=== PATIENT | female | born 1945 | race Caucasian/White ===

== ENCOUNTER → 2016-12-23 | Outpatient (CLI) | payer BC ==
[~2016-12-23] MED LIST: ALPOPS1510 OPB; CONJ0.3T3 PO; DORZ1SOL5 OPB; ONDA4TAB7 SL; TRAV0.00 OPB; [UNRECOGNIZED DRUG - OTHER] PO
== END | disposition home or self-care (01) ==
LOC: C.PAPS 10:37
PROVIDERS: ATTEND Obstetrics & Gynecology
DX: Z12.4 Encounter for screening for malignant neoplasm of cervix (principal)

== ENCOUNTER → 2016-12-23 | Outpatient (CLI) | payer BC ==
[2016-12-24 13:54] LABS: HERPES SIMPLEX AB IGG-1 >5.00
== END | disposition home or self-care (01) ==
LOC: C.LAB1850 11:31
PROVIDERS: ATTEND Obstetrics & Gynecology
DX: Z12.4 Encounter for screening for malignant neoplasm of cervix (principal); Z11.3 Encounter for screening for infections with a predominantly sexual mode of transmission

== ENCOUNTER 2017-03-22 21:13 | Emergency (ER) | payer BC ==
[~2017-03-22] VITALS: Ht 170.2 cm; Wt 64.3 kg
[~2017-03-22 21:13] MED LIST changes: -CONJ0.3T3 PO; -DORZ1SOL5 OPB
[2017-03-22 21:26] VITALS: TEMP 36.5; Ht 170.2 cm; Wt 64.3 kg
[2017-03-22 21:50] VITALS: O2SAT 100
[2017-03-22 21:59] LABS: HEMATOCRIT 35.5 % (37-47); MEAN CELL VOLUME 88.3 fL (80-100); MEAN CORPUSCULAR HEMOGLOBIN 29.4 pg (25-34); MEAN CORPUSCULAR HGB CONC 33.2 g/dl (32-36); MEAN PLATELET VOLUME 9.7 fL (7.4-10.4); PLATELET COUNT 220 K/uL (130-400); RED BLOOD COUNT 4.02 M/uL (4.2-5.4)
[2017-03-22 22:13] LABS: PROTHROMBIN TIME (PATIENT) 10.7 SECONDS (9.0-12.0)
[2017-03-22 22:16] LABS: BASO % 0.4 %; BASO ABS # 0.03 K/uL (0-0.2); COMPLETE YES; EOS % 1.9 %; LYMPH % 17.8 %; LYMPH ABS # 1.41 K/uL (1.2-3.4); MONO % 3.3 %; NEUT % 76.6 %; TOXIC GRANULATION 1+
[2017-03-22] MEDS ORDERED: CONJ0.3T3 PO (22:16)
[2017-03-22] MEDS ORDERED: DORZ1SOL5 OPB (22:16)
[2017-03-22 22:18] LABS: CALCIUM 9.2 mg/dl (8.5-10.1)
[2017-03-22 22:19] LABS: ALT/SGPT 23 U/L (12-78); BLOOD UREA NITROGEN 14 mg/dl (7-18); BUN/CREATININE RATIO 25.1 (10-20); CARBON DIOXIDE 22 mmol/L (21-32); CHLORIDE 107 mmol/L (98-107); CREATININE 0.57 mg/dl (0.60-1.20); GLUCOSE 112 mg/dl (70-99); POTASSIUM 3.4 mmol/L (3.5-5.1); SODIUM 141 mmol/L (136-145)
--- NOTE | 2017-03-22 22:21 | DIAGNOSTIC IMAGING REPORT ---
SINGLE VIEW CHEST CLINICAL HISTORY: Fever. Sepsis. FINDINGS: An AP, portable, upright chest radiograph is compared to study dated 10/15/2014. The examination is degraded by portable technique and patient rotation. The cardiomediastinal silhouette is unremarkable. Findings suggest emphysema. Chronic interstitial thickening is unchanged and there is biapical scarring. No airspace consolidation or pleural effusion is identified. No pneumothorax is seen. The skeletal structures are osteopenic. Gender change and mild scoliosis are noted throughout the thoracic spine. IMPRESSION: Suspect emphysema. There is no acute cardiopulmonary abnormality. Electronically signed by: Lisandro Cutler M.D. 03/22/2017 10:19 PM Dictated Date/Time: 03/22/2017 10:18 PM
[2017-03-22 22:24] LABS: ALKALINE PHOSPHATASE 70 U/L (45-117); AST/SGOT 26 U/L (15-37); CKMB/CK RATIO 1.9 (0-3.0)
--- NOTE | 2017-03-22 23:42 | EMERGENCY ROOM VISIT NOTE ---
History Report prepared by Scribe: Tonya Miranda Under the Supervision of: Dr. Nguyễn Castellanos D.O. First contact with patient: 21:37 Chief Complaint: NAUSEA Stated Complaint: DIZZY Nursing Triage Summary: arrived via amb with bls from the walk in clinic. pt had a normal day and tonight after standing for a prolonged time talking with a realator she felt nauseated and dizzy so she drove herself to the walk in clinic and they sent her for n/v. pt denies any c/o alert and oriented at present. History of Present Illness The patient is a 71 year old female who presents to the Emergency Room with complaints of worsening nausea that started earlier this evening. She was brought to the ED via BLS. She reports she started to feel dizzy after standing for a prolonged period of time talking to a realtor this evening. She tried laying down, but her dizziness persisted so she drove herself to a walk-in clinic. She states at the clinic, they referred her to the ED for further evaluation. The patient admits to a lot of stress recently with trying to sell her house. She complains of some "slight cramping" in her abdomen. 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 A total of 10 systems reviewed and were otherwise negative. Past Medical & Surgical Medical Problems: (1) Gastroparesis (2) No Known Active Medical Problems (3) Pneumonia Surgical Problems: (1) History of appendectomy (2) Hx of tonsillectomy Family History Cancer Diabetes mellitus Gallbladder disease Heart disease Hypertension Kidney disease Kidney stones Lung disease Seizures Social History Smoking Status: Never Smoker Alcohol Use: occasionally Drug Use: none Marital Status: Housing Status: lives alone Occupation Status: retired Current/Historical Medications Scheduled Dorzolamide Hcl-Timolol Maleat (Cosopt Pf), 1 DROP OPB BID Estrog Conj/Medryoxyprog Acet (Prempro 0.3MG/1.5MG), 1 TAB PO Q2D Travoprost (Travatan Z), 1 DROP OPB QD Allergies Coded Allergies: Cephalosporins (Unverified Allergy, Unknown, UNKN, 03/22/17) Erythromycin (Unverified Allergy, Unknown, UNKN, 03/22/17) Penicillins (Unverified Allergy, Unknown, UNKN, 03/22/17) Sulfa Drugs (Unverified Allergy, Unknown, UNKN, 03/22/17) Physical Exam Vital Signs Date Time Temp Pulse Resp B/P Pulse Ox O2 Delivery O2 Flow Rate FiO2 03/22/17 22:21 66 18 112/73 96 Room Air 03/22/17 21:50 100 Room Air 03/22/17 21:32 100 Room Air 03/22/17 21:26 36.5 64 18 115/66 100 Room Air 03/22/17 21:22 71 Physical Exam CONSTITUTIONAL/VITAL SIGNS: Reviewed / noted above. GENERAL: Non-toxic in appearance. INTEGUMENTARY: Warm, dry, and [place]. HEAD: Normocephalic. EYES: without scleral icterus or trauma. ENT/OROPHARYNX: clear and moist. LYMPHADENOPATHY/NECK: Is supple without lymphadenopathy or meningismus. RESPIRATORY: Lungs clear and equal. CARDIOVASCULAR: Regular rate and rhythm. GI/ABDOMEN: Soft and nontender. No organomegaly or pulsatile mass. No rebound or guarding. Normal bowel sounds. EXTREMITIES: Warm and well perfused. BACK: No CVA tenderness. NEUROLOGICAL: Intact without focal deficits. PSYCHIATRIC: normal affect. MUSCULOSKELETAL: Normally developed with good muscle tone. Medical Decision & Procedures ER Provider Diagnostic Interpretation: This X-Ray was reviewed and interpreted by myself and the radiologist. SINGLE VIEW CHEST IMPRESSION: Suspect emphysema. There is no acute cardiopulmonary abnormality. Electronically signed by: Lisandro Cutler M.D. 03/22/2017 10:19 PM Laboratory Results 03/22/17 21:40 Red Blood Count 4.02, Mean Corpuscular Volume 88.3, Mean Corpuscular Hemoglobin 29.4, Mean Corpuscular Hemoglobin Concent 33.2, Mean Platelet Volume 9.7, Neutrophils (%) (Auto) 76.6, Lymphocytes (%) (Auto) 17.8, Monocytes (%) (Auto) 3.3, Eosinophils (%) (Auto) 1.9, Basophils (%) (Auto) 0.4, Neutrophils # (Auto) 6.05, Lymphocytes # (Auto) 1.41, Monocytes # (Auto) 0.26, Eosinophils # (Auto) 0.15, Basophils # (Auto) 0.03 03/22/17 21:40 Test 03/22/17 21:40 White Blood Count 7.90 K/uL (4.8-10.8) Red Blood Count 4.02 M/uL (4.2-5.4) Hemoglobin 11.8 g/dL (12.0-16.0) Hematocrit 35.5 % (37-47) Mean Corpuscular Volume 88.3 fL (80-100) Mean Corpuscular Hemoglobin 29.4 pg (25-34) Mean Corpuscular Hemoglobin Concent 33.2 g/dl (32-36) Platelet Count 220 K/uL (130-400) Mean Platelet Volume 9.7 fL (7.4-10.4) Neutrophils (%) (Auto) 76.6 % Lymphocytes (%) (Auto) 17.8 % Monocytes (%) (Auto) 3.3 % Eosinophils (%) (Auto) 1.9 % Basophils (%) (Auto) 0.4 % Neutrophils # (Auto) 6.05 K/uL (1.4-6.5) Lymphocytes # (Auto) 1.41 K/uL (1.2-3.4) Monocytes # (Auto) 0.26 K/uL (0.11-0.59) Eosinophils # (Auto) 0.15 K/uL (0-0.5) Basophils # (Auto) 0.03 K/uL (0-0.2) RDW Standard Deviation 43.8 fL (36.4-46.3) RDW Coefficient of Variation 13.5 % (11.5-14.5) Immature Granulocyte % (Auto) 0.0 % Immature Granulocyte # (Auto) 0.00 K/uL (0.00-0.02) Toxic Granulation 1+ Prothrombin Time 10.7 SECONDS (9.0-12.0) Prothromb Time International Ratio 1.0 (0.9-1.1) Activated Partial Thromboplast Time 25.2 SECONDS (21.0-31.0) Partial Thromboplastin Ratio 1.0 Anion Gap 12.0 mmol/L (3-11) Est Creatinine Clear Calc Drug Dose 90.6 ml/min Estimated GFR () 109.6 Estimated GFR (Non- 94.6 BUN/Creatinine Ratio 25.1 (10-20) Calcium Level 9.2 mg/dl (8.5-10.1) Total Bilirubin 0.4 mg/dl (0.2-1) Direct Bilirubin < 0.1 mg/dl (0-0.2) Aspartate Amino Transf (AST/SGOT) 26 U/L (15-37) Alanine Aminotransferase (ALT/SGPT) 23 U/L (12-78) Alkaline Phosphatase 70 U/L (45-117) Total Creatine Kinase 218 U/L (26-192) Creatine Kinase MB 4.1 ng/ml (0.5-3.6) Creatine Kinase MB Ratio 1.9 (0-3.0) Troponin I < 0.015 ng/ml (0-0.045) Total Protein 7.5 gm/dl (6.4-8.2) Albumin 4.0 gm/dl (3.4-5.0) Lipase 177 U/L (73-393) Laboratory results as stated above per my review. ECG Indication: nausea Rate (beats per minute): 72 Rhythm: normal sinus (normal sinus rhythm) Findings: no acute ischemic change, no ectopy ED Course 2157: Previous medical records were reviewed. The patient was evaluated in room C5. A complete history and physical examination was performed. 2345: I reevaluated the patient. She is feeling much better. I discussed her results and discharge instructions and she verbalized complete understanding and agreement. Medical Decision Differential includes acute coronary syndrome, myocardial infarction, CVA, TIA, anemia, infection, pneumonia, UTI, pyelonephritis, poor nutrition, dehydration, electrolyte disturbance,hypoglycemia. This is a 71-year-old female who presents to the ED with a chief complaint of nausea, lightheadedness and dizziness. The patient states that she was standing for a long time talking to a real estate photographer. Her symptoms started at that time. She states that she laid down for a while and wasn't feeling better and decided to go to the walk-in clinic. She was then referred here. The patient states that she is undergoing a lot of stress recently. She is in the process of selling her house. The new house that she had about 10 months ago as having water drainage issues. She states that she has movers coming in to move things at the end of the week and she is not ready for them. She has had some pets that have recently been ill. Her vital signs are normal. Her physical exam was normal. EKG shows a normal sinus rhythm without ectopy or acute injury. CBC is normal. Complete metabolic panel was unremarkable. Troponin is negative. Lipase was negative. Chest x-ray did not show acute disease. The patient was told the results of the test. She is felt to be stable for discharge and outpatient follow-up. Impression Primary Impression: Dizziness Additional Impression: Stress Scribe Attestation The scribe's documentation has been prepared under my direction and personally reviewed by me in its entirety. I confirm that the note above accurately reflects all work, treatment, procedures, and medical decision making performed by me. Departure Information Dispostion Home / Self-Care Referrals Chris Sweet M.D. (PCP) Patient Instructions My [facility] Additional Instructions Follow-up with your doctor for further care and evaluation in 1-2 days. Return to the emergency department for worsening or new symptoms or any concerns. You have been examined and treated today on an emergency basis only. This is not a substitute for, or an effort to provide, complete comprehensive medical care. It is impossible to recognize and treat all injuries or illnesses in a single emergency department visit. It is therefore important that you follow up closely with your doctor. Call as soon as possible for an appointment. Problem Qualifiers
[2017-03-23 00:01] VITALS: BP 112/73; PULSE 66; O2SAT 96
== END 2017-03-23 00:03 | disposition home or self-care (01) ==
LOC: EDBD 21:13 → C.EDA 21:14
DX: R42 Dizziness and giddiness (principal); F43.9 Reaction to severe stress, unspecified; K31.84 Gastroparesis; Z87.01 Personal history of pneumonia (recurrent); Z80.9 Family history of malignant neoplasm, unspecified; Z83.3 Family history of diabetes mellitus; Z83.79 Family history of other diseases of the digestive system; Z82.49 Family history of ischemic heart disease and other diseases of the circulatory system; Z84.1 Family history of disorders of kidney and ureter; Z83.6 Family history of other diseases of the respiratory system; Z79.899 Other long term (current) drug therapy

== ENCOUNTER 2025-09-15 16:25 | Inpatient (IN) ==
--- NOTE | 2025-09-15 17:01 | Emergency Department Note ---
Impression & Plan Acute dyspnea, Mycoplasmal pneumonia, Pneumonia, Acute hypokalemia, Hypoxia ED Provider Note HISTORY OF PRESENT ILLNESS: Patient is a 79-year-old female presenting with shortness of breath and cough. Patient reports that 1 week ago she had a high fever with a Tmax of 104. Reports that 6 days ago the fever broke and she was feeling slightly improved, but she started to develop some shortness of breath and a dry, nonproductive cough. She states that she has had intermittent fevers throughout the week and decreased appetite all week secondary to feeling unwell. She states that she was very short of breath and feeling very fatigued today and given that it has been a week of symptoms and she is not getting better, she decided to come to be evaluated. Denies any recent sick contact exposures or recent travel. She does not take any medications daily. Denies any rashes. Denies any dysuria or hematuria. Denies any abdominal pain, nausea or vomiting. Denies any chest pain. Denies any DVT or PE history. Denies any history of cardiac stents. Denies any anticoagulation or antiplatelet use. ROS: as above PHYSICAL EXAM: Constitutional: Patient appears in no acute distress. HENT: Head: Normocephalic and atraumatic. Eyes: EOMI, PERRL Mouth/Throat: Mucous membranes dry. Neck: Trachea midline. Neck supple. Cardiovascular: Tachycardic with regular rhythm. No murmurs, rubs or gallops. Intact distal pulses. Pulmonary/Chest: No respiratory distress. Breath sounds clear and equal bilaterally. No wheezes or rales. Abdominal: Abdomen soft, no tenderness, rebound or guarding. Musculoskeletal: No edema, tenderness or deformity noted. Skin: Warm and dry. No rash, erythema, pallor or cyanosis Psychiatric: Appropriate mood and affect for situation. Neurological: Alert and keenly responsive. CN II-XII grossly intact, moving all extremities equally and fully. MDM: - Vitals signs showed fever and tachycardia - History obtained via patient. History as above. - Chronic conditions affecting care: None - Differential diagnoses include, but are not limited to: Congestive heart failure; acute coronary syndrome; COPD/asthma exacerbation; pulmonary edema; pulmonary embolism; pneumonia; pneumothorax; viral syndrome - Order placed for continuous cardiac monitoring. At this time, monitor showed rate of 102 bpm with normal sinus rhythm, per my interpretation. - External medical records reviewed. - EKG image interpreted by myself showed normal sinus rhythm. Rate tachycardic 110 bpm. QT 342. No acute ischemic changes. Noted to have a left anterior fascicular block. - Laboratory workup interpreted by myself showed normal WBC; normal PT/INR; hypokalemia (K 3.1); elevated AST (41); normal troponin; normal lactate; normal procalcitonin - Blood cultures obtained - UA negative for infection. Noted of trace ketonuria. - CXR image reviewed and interpreted by myself showed what appears to be a right lower lobe pneumonia, per my interpretation. - Viral respiratory swab positive for mycoplasma pneumonia. - Patient given 2L NS and 1g IV tylenol in ER. On reassessment, her heart rate has significantly improved and she is no longer febrile. She was given 500 mg of azithromycin for the mycoplasma infection. - Discussed results with the patient. She was feeling slightly improved with improvement in her heart rate and fever. Patient's saturations in the emergency department are ranging from 92 to 94% on telemetry. Did discuss results with the patient. She ambulated in the emergency department and saturations decreased to 85%. She did recover quickly when brought back to her examination bed. Given her hypoxia in the setting of her mycoplasma pneumonia, will admit to hospitalist service. - Discussion was had with case finisher about patient's case and need for admission - Hospitalist consulted for admission - Patient admitted to [facility] hospitalist service for further evaluation and management. ASSESSMENT AND PLAN: Diagnosis: Acute dyspnea; mycoplasma pneumonia; pneumonia; acute hypokalemia; hypoxia Plan: Admit Past Med/Surg History Problem List (Updated 09/15/25 @ 19:57 by Jolene Smith MD) Hypoxia (Acute) Acute hypokalemia (Acute) Pneumonia (Acute) Mycoplasmal pneumonia (Acute) Acute dyspnea (Acute) Tinnitus, bilateral Sensorineural hearing loss, bilateral Encounter for pre-operative examination Medical History (Updated 09/15/25 @ 19:57 by Jolene Smith MD) Nausea Dehydration Gastroparesis Pneumonia Surgical History Hx of tonsillectomy History of appendectomy Family History Other Cancer Heart disease Hypertension Kidney disease Social History Smoking Status: Never smoker Tobacco Type: Cigarettes Second Hand Exposure: No; Do You Dip or Chew Tobacco: No; Hx Alcohol Use: Yes Alcohol type: beer, wine and hard liquor Hx Substance Use: No Preferred Language: Kiswahili Communication Ability: Effective Molding And Trim Installer Required: No Beliefs That Will Affect Care: None Current Living Situation: Alone Feels Safe at Home: Yes Allergies Allergies Allergy/AdvReac Type Severity Reaction Status Date / Time Penicillins Allergy Severe Anaphylaxis Verified 09/15/25 17:48 Cephalosporins Allergy Intermediate Hives Verified 09/15/25 17:48 Sulfa (Sulfonamide Allergy Intermediate ALLERGIC Verified 09/15/25 17:48 Antibiotics) MENINGITIS erythromycin base Allergy Unknown CAN'T Verified 09/15/25 17:48 REMEMBER Home Meds Home Medications Medication Instructions Recorded Confirmed cholecalciferol (vitamin D3) 50 100 mcg PO DAILY 05/11/21 09/15/25 mcg (2,000 unit) capsule (Vitamin D3) multivitamin 1 tab PO DAILY 05/11/21 09/15/25 vit C 250 mg-vit E 90 mg-zinc 40 1 tab PO BID 05/11/21 09/15/25 mg-copper 1 [id number] capsule (PreserVision AREDS-2) alendronate 70 mg tablet 70 mg PO WK 05/11/25 09/15/25 dorzolamide 22.3 mg-timolol 6.8 1 drp OPB QAM 05/11/25 09/15/25 mg/mL eye drops tafluprost (PF) 0.0015 % eye drops 1 drp OPB HS 05/11/25 09/15/25 in a dropperette (Zioptan (PF)) Results & Data (ED) Vital Signs Vital Signs - 24 hr 09/15/25 16:33 09/15/25 16:53 09/15/25 16:53 Temperature 37.1 C Temperature Source Temporal Artery Scan Pulse Rate 126 H Pulse Rate [Apical] Pulse Rate from SpO2 Sensor Respiratory Rate 20 Respiratory Effort / Characteristics Non-Labored Spontaneous Non-Labored Spontaneous Respiratory Depth Normal Normal Respiratory Pattern Regular Blood Pressure 128/84 Blood Pressure [Right Arm] Blood Pressure Mean 98 Blood Pressure Mean [Right Arm] Blood Pressure Position [Right Arm] Pulse Oximetry 92 Oxygen Delivery Method Nasal Cannula Room Air Room Air Sepsis Recent Fever Within 48 Hours No Sepsis New/Unexplained Change in Mental Status N/A Sepsis Action Taken by Nursing No Action Required 09/15/25 16:53 09/15/25 16:53 09/15/25 17:00 Temperature 37.9 C H Temperature Source Oral Pulse Rate Pulse Rate [Apical] 116 H Pulse Rate from SpO2 Sensor Respiratory Rate 16 Respiratory Effort / Characteristics Non-Labored Spontaneous Respiratory Depth Normal Respiratory Pattern Regular Blood Pressure 129/82 Blood Pressure [Right Arm] 134/93 Blood Pressure Mean 111 Blood Pressure Mean [Right Arm] 106 Blood Pressure Position [Right Arm] Semi-fowlers Pulse Oximetry 92 92 Oxygen Delivery Method Room Air Room Air Sepsis Recent Fever Within 48 Hours Sepsis New/Unexplained Change in Mental Status Sepsis Action Taken by Nursing 09/15/25 17:01 09/15/25 17:12 09/15/25 17:15 Temperature Temperature Source Pulse Rate 104 H 111 H Pulse Rate [Apical] 107 H Pulse Rate from SpO2 Sensor 104 H Respiratory Rate 21 25 H Respiratory Effort / Characteristics Respiratory Depth Respiratory Pattern Blood Pressure Blood Pressure [Right Arm] 129/82 Blood Pressure Mean Blood Pressure Mean [Right Arm] 97 Blood Pressure Position [Right Arm] Semi-fowlers Pulse Oximetry 92 95 Oxygen Delivery Method Room Air Room Air Sepsis Recent Fever Within 48 Hours Sepsis New/Unexplained Change in Mental Status Sepsis Action Taken by Nursing 09/15/25 17:30 09/15/25 17:57 09/15/25 18:00 Temperature Temperature Source Pulse Rate 108 H 105 H 102 H Pulse Rate [Apical] Pulse Rate from SpO2 Sensor Respiratory Rate 26 H 23 24 Respiratory Effort / Characteristics Respiratory Depth Respiratory Pattern Blood Pressure Blood Pressure [Right Arm] Blood Pressure Mean Blood Pressure Mean [Right Arm] Blood Pressure Position [Right Arm] Pulse Oximetry Oxygen Delivery Method Sepsis Recent Fever Within 48 Hours Sepsis New/Unexplained Change in Mental Status Sepsis Action Taken by Nursing 09/15/25 18:15 09/15/25 18:19 09/15/25 18:19 Temperature 37.2 C Temperature Source Oral Pulse Rate 100 H Pulse Rate [Apical] 102 H Pulse Rate from SpO2 Sensor Respiratory Rate 21 20 Respiratory Effort / Characteristics Respiratory Depth Respiratory Pattern Blood Pressure 122/82 Blood Pressure [Right Arm] 122/82 Blood Pressure Mean 98 Blood Pressure Mean [Right Arm] 95 Blood Pressure Position [Right Arm] Semi-fowlers Pulse Oximetry 95 Oxygen Delivery Method Room Air Sepsis Recent Fever Within 48 Hours Sepsis New/Unexplained Change in Mental Status Sepsis Action Taken by Nursing 09/15/25 18:19 09/15/25 18:19 09/15/25 18:19 Temperature Temperature Source Pulse Rate Pulse Rate [Apical] Pulse Rate from SpO2 Sensor Respiratory Rate Respiratory Effort / Characteristics Respiratory Depth Respiratory Pattern Blood Pressure 122/82 122/82 122/82 Blood Pressure [Right Arm] Blood Pressure Mean 98 98 98 Blood Pressure Mean [Right Arm] Blood Pressure Position [Right Arm] Pulse Oximetry Oxygen Delivery Method Sepsis Recent Fever Within 48 Hours Sepsis New/Unexplained Change in Mental Status Sepsis Action Taken by Nursing 09/15/25 18:24 09/15/25 18:31 09/15/25 18:42 Temperature Temperature Source Pulse Rate 100 H 94 H Pulse Rate [Apical] Pulse Rate from SpO2 Sensor 100 H Respiratory Rate 15 16 Respiratory Effort / Characteristics Respiratory Depth Respiratory Pattern Blood Pressure 139/75 Blood Pressure [Right Arm] Blood Pressure Mean 78 Blood Pressure Mean [Right Arm] Blood Pressure Position [Right Arm] Pulse Oximetry 94 Oxygen Delivery Method Sepsis Recent Fever Within 48 Hours Sepsis New/Unexplained Change in Mental Status Sepsis Action Taken by Nursing 09/15/25 19:00 09/15/25 19:00 09/15/25 19:00 Temperature Temperature Source Pulse Rate Pulse Rate [Apical] Pulse Rate from SpO2 Sensor Respiratory Rate Respiratory Effort / Characteristics Respiratory Depth Respiratory Pattern Blood Pressure 147/72 H 147/72 H 147/72 H Blood Pressure [Right Arm] Blood Pressure Mean 100 100 100 Blood Pressure Mean [Right Arm] Blood Pressure Position [Right Arm] Pulse Oximetry Oxygen Delivery Method Sepsis Recent Fever Within 48 Hours Sepsis New/Unexplained Change in Mental Status Sepsis Action Taken by Nursing 09/15/25 19:00 09/15/25 19:03 Temperature Temperature Source Pulse Rate 99 H Pulse Rate [Apical] Pulse Rate from SpO2 Sensor 102 H Respiratory Rate 19 Respiratory Effort / Characteristics Respiratory Depth Respiratory Pattern Blood Pressure 147/72 H Blood Pressure [Right Arm] Blood Pressure Mean 100 Blood Pressure Mean [Right Arm] Blood Pressure Position [Right Arm] Pulse Oximetry 92 Oxygen Delivery Method Sepsis Recent Fever Within 48 Hours Sepsis New/Unexplained Change in Mental Status Sepsis Action Taken by Nursing Laboratory Data 09/15/25 16:54 09/15/25 16:54 Lab Results 09/15/25 09/15/25 Range/Units 16:54 18:54 WBC 8.75 (4.8-10.8) K/ul RBC 4.46 (4.20-5.40) M/uL Hgb 12.3 (12.0-16.0) g/dl Hct 37.0 (37.0-47.0) % MCV 83.0 (80.0-100.0) fL MCH 27.6 (25.0-34.0) pg MCHC 33.2 (32.0-36.0) g/dL RDW Std Deviation 52.4 H (36.4-46.3) fL RDW Coeff of Francine 17.2 H (11.5-14.5) % Plt Count 248 (130-400) K/uL MPV 9.2 L (9.4-12.4) fL Immature Gran % (Auto) 0.7 % Neut % (Auto) 81.9 % Lymph % (Auto) 9.4 % [place] % (Auto) 6.7 % Eos % (Auto) 1.0 % Baso % (Auto) 0.3 % Neut # (Auto) 7.16 H (1.40-6.50) K/uL Lymph # (Auto) 0.82 L (1.20-3.40) K/uL [place] # (Auto) 0.59 (0.11-0.59) K/uL Eos # (Auto) 0.09 (0.00-0.50) K/uL Baso # (Auto) 0.03 (0.00-0.20) K/uL Immature Gran # (Auto) 0.06 (0.01-0.20) K/uL PT 11.4 (9.0-12.0) Seconds INR 1.1 (0.9-1.1) APTT 29 (21-31) Seconds PTT Ratio 1.1 Sodium 134 L (136-145) mmol/L Potassium 3.1 L (3.5-5.1) mmol/L Chloride 95 L (98-107) mmol/L Carbon Dioxide 29 (21-32) mmol/L Anion Gap 10 (3-11) BUN 12 (6-23) mg/dl Creatinine 0.67 (0.6-1.2) mg/dl Est Cr Clr Drug Dosing 54.1 ml/min eGFR 89.96 BUN/Creatinine Ratio 17.9 (10-20) Glucose 144 H (70-99(Fasting)) mg/dl Lactate 1.9 (0.4-2.0) mmol/L Calcium 9.3 (8.6-10.3) mg/dl Magnesium 1.9 (1.7-2.4) mg/dl Total Bilirubin 0.5 (0.2-1.0) mg/dl AST 41 H (13-39) U/L ALT 46 (7-52) U/L Alkaline Phosphatase 385 H (34-104) U/L Troponin I High Sens 9.4 (0-14) pg/ml Total Protein 7.7 (6.0-8.3) gm/dl Albumin 3.9 (3.4-5.0) gm/dl Globulin 3.8 (2.5-4.0) gm/dl Albumin/Globulin Ratio 1.0 (0.9-2) Procalcitonin 0.05 (0-0.5) ng/ml Urine Color Yellow Urine Appearance Clear (Clear) Urine pH 7.0 (4.5-7.5) Ur Specific Adrian 1.015 (1.000-1.030) Urine Protein 1+ H (Negative) Urine Glucose (UA) Negative (Negative) Urine Ketones 1+ H (Negative) Urine Blood Trace-intact H (Negative) Urine Nitrite Negative (Negative) Urine Bilirubin Negative (Negative) Urine Urobilinogen Negative (Negative) Ur Leukocyte Esterase Negative (Negative) Urine WBC (Auto) 0-5 (0-5) /hpf Urine RBC (Auto) 0-2 (0-2) /hpf U Hyaline Cast (Auto) 3-5 H (0-2) /lpf U Epithel Cells (Auto) 0-2 (0-2) /hpf Urine Bacteria (Auto) None Seen (None Seen) Urine Comment Adenovirus (PCR) Not Detected (NotDetected) B. pertussis DNA (PCR) Not Detected (NotDetected) B.parapertussis DNA PCR Not Detected (NotDetected) C. pneumoniae DNA (PCR) Not Detected (NotDetected) Coronavirus OC43 (PCR) Not Detected (NotDetected) Coronavirus HKU1 (PCR) Not Detected (NotDetected) Coronavirus 229E (PCR) Not Detected (NotDetected) SARS-CoV-2 (PCR) Not Detected (NotDetected) Coronavirus NL63 (PCR) Not Detected (NotDetected) Human Metapneumovir PCR Not Detected (NotDetected) Influenza Type A (PCR) Not Detected (NotDetected) Influenza Type B (PCR) Not Detected (NotDetected) M. pneumoniae (PCR) DETECTED A (NotDetected) Parainfluenza 1 (PCR) Not Detected (NotDetected) Parainfluenza 2 (PCR) Not Detected (NotDetected) Parainfluenza 3 (PCR) Not Detected (NotDetected) Parainfluenza 4 (PCR) Not Detected (NotDetected) RSV (PCR) Not Detected (NotDetected) Entero/Rhino (PCR) Not Detected (NotDetected) Administered Medications Discontinued Medications Azithromycin (Azithromycin 250 Mg Tab) 500 mg PO NOW ONE Stop: 09/15/25 18:12 Last Admin: 09/15/25 18:26 Dose: 500 mg Documented By: CODY Sodium Chloride (Nss) 2,000 mls @ 999 mls/hr IV .Q2H1M ONE Stop: 09/15/25 18:59 Last Infusion: 09/15/25 18:52 Dose: Infused Documented By: Admin: 09/15/25 17:02 Dose: 999 mls/hr Documented By: CODY Acetaminophen (Ofirmev) 1,000 mg in 100 mls @ 400 mls/hr IV NOW STA Stop: 09/15/25 17:15 Last Infusion: 09/15/25 18:22 Dose: Infused Documented By: Admin: 09/15/25 17:04 Dose: 400 mls/hr Documented By: CODY Discharge Plan Visit Data Chief Complaint: Shortness of Breath/Dyspnea Stated Complaint: COUGH, FATIGUE, SOB ED Provider: Jolene Smith Discharge Problem: Acute dyspnea, Mycoplasmal pneumonia, Pneumonia, Acute hypokalemia, Hypoxia Condition: Fair Forms Stand Alone Forms: [facility] [employer] Prescriptions Prescriptions: No Action multivitamin Tablet 1 tab PO DAILY cholecalciferol (vitamin D3) [Vitamin D3] 50 mcg (2,000 unit) Capsule 100 mcg PO DAILY PreserVision AREDS-2 250-90-40-1 mg Capsule 1 tab PO BID alendronate 70 mg tablet 70 mg PO WK Rx Instructions: THURSDAYS dorzolamide-timolol 22.3-6.8 mg/mL drops 1 drp OPB QAM tafluprost (PF) [Zioptan (PF)] 0.0015 % dropperette 1 drp OPB HS Referrals Referrals: Chris Sweet MD [Primary Care Provider] -
[2025-09-15] MEDS: SODIUM CHLORIDE 0.9% 2,000 ML IV ONE (17:02)
[2025-09-15] MEDS: ACETAMINOPHEN 1,000 MG/100 ML VIAL IV STA (17:04)
[2025-09-15 17:15] LABS: Hematocrit (blood only) 37.0 % (37.0-47.0); Hemoglobin 12.3 g/dl (12.0-16.0); Immature Granulocytes # (auto) 0.06 K/uL (0.01-0.20); Immature Granulocytes % (auto) 0.7 %; Mean Corpuscular Hemoglobin 27.6 pg (25.0-34.0); Mean Corpuscular Volume 83.0 fL (80.0-100.0); Platelet Count 248 K/uL (130-400); RDW Standard Deviation 52.4 fL (36.4-46.3); Red Blood Count 4.46 M/uL (4.20-5.40); White Blood Count 8.75 K/ul (4.8-10.8)
[2025-09-15 17:33] LABS: Alanine Aminotransferase 46.0 U/L (7-52); Albumin Globulin Ratio 1.0 (0.9-2); Albumin Level 3.9 gm/dl (3.4-5.0); Alkaline Phosphatase 385.0 U/L (34-104); Anion Gap 10.0 (3-11); Bilirubin,Total 0.5 mg/dl (0.2-1.0); Blood Urea Nitrogen 12.0 mg/dl (6-23); Calcium 9.3 mg/dl (8.6-10.3); Carbon Dioxide 29.0 mmol/L (21-32); Chloride 95.0 mmol/L (98-107); Creatinine Clr Calc Pharmacy 54.1 ml/min; Globulin 3.8 gm/dl (2.5-4.0); Glucose 144.0 mg/dl (70-99(Fasting)); Magnesium 1.9 mg/dl (1.7-2.4); Potassium 3.1 mmol/L (3.5-5.1); Sodium 134.0 mmol/L (136-145); Total Protein 7.7 gm/dl (6.0-8.3)
[2025-09-15 17:43] LABS: INR 1.1 (0.9-1.1); Partial Thromboplastin Time 29 Seconds (21-31); Prothrombin Time 11.4 Seconds (9.0-12.0)
[2025-09-15 18:01] LABS: Chlamydia pneumoniae PCR Not Detected (NotDetected); Coronavirus 229E PCR Not Detected (NotDetected); Coronavirus CoV-2 (COVID19)PCR Not Detected (NotDetected); Coronavirus HKU1 PCR Not Detected (NotDetected); Coronavirus NL63 PCR Not Detected (NotDetected); Coronavirus OC43PCR Not Detected (NotDetected); Human Metapneumovirus PCR Not Detected (NotDetected); Parainfluenza Virus 1 PCR Not Detected (NotDetected); Parainfluenza Virus 2 PCR Not Detected (NotDetected); Parainfluenza Virus 3 PCR Not Detected (NotDetected); Parainfluenza Virus 4 PCR Not Detected (NotDetected); Respiratory Syncytial VirusPCR Not Detected (NotDetected); Rhinovirus/Enterovirus PCR Not Detected (NotDetected)
[2025-09-15] MEDS: AZITHROMYCIN 250 MG TAB PO ONE (18:26)
[2025-09-15 19:09] LABS: Appearance Urine Clear (Clear); Glucose Urine UA Negative (Negative)
[2025-09-15 19:15] LABS: Bacteria Urine Automated None Seen (None Seen); Epithelial Cell Urine Auto 0-2 /hpf (0-2); RBC Urine Automated 0-2 /hpf (0-2); WBC Urine Automated 0-5 /hpf (0-5)
--- NOTE | 2025-09-15 20:25 | XRay Report ---
Single frontal view of the chest Comparison is made to prior exam dated 12/11/2024 Impression: Right lower lobe pneumonia. Electronically signed by Dewayne Guadalupe 09-15-2025 8:24 PM
--- NOTE | 2025-09-15 20:35 | History & Physical Report ---
Date of Service September 15, 2025 Assessment & Plan (1) Mycoplasmal pneumonia: (2) Hypoxia: (3) Hyponatremia: (4) Hypokalemia: (5) Transaminitis: Plan 79-year-old female PMHx ADD, HLD, OP, esophageal stricture, gastroparesis, glaucoma, and arthritis presenting for shortness of breath and coughing over the past 7 days, worsening the day of arrival. Her evaluation significant for slightly decreased sodium, potassium, and chloride. Her LFTs are elevated with AST 41 and alkaline phosphatase 385 which is up from her baseline. Procalcitonin and lactate are normal. Urine is negative for infection. Her BioFire does reveal positive results for mycoplasma pneumonia, chest x-ray RLL PNA. Admission for pneumonia management in setting of recurrent hypoxia. #Mycoplasma pneumonia/Acute hypoxia Sx of cough, SOB, decreased appetite, and hypoxia with exertion. CURB 65- 1 (age), but in setting of hypoxia. No known sick contacts, no symptoms concerning for DVT/PE. Suspect that hypoxia in setting of PNA, will admit for management of such. Anaphylaxis to penicillins, hives to cephalosporins. 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 Received 2L NSS in ED. - Na 134, glucose 144; corrected Na 135 - BMP am - Gentle IVF LR @ 80 mL/hr x 500 mL #Hypokalemia Asymptomatic currently. - K 3.1, Mg 1.9 - BMP am - EKG sinus tachycardia, no acute changes otherwise - KCl 40 mEq po now #Transaminitis No prior history of such; h/o OP, alendronate; in setting of present infection. No abdominal pain or GI symptoms otherwise. - AST 41, ALT 46, alk phos 385, total bili 0.5 - LFTs am #Glaucoma- Continue eyedrops Dispo: Admit, med/tele VTE Prophylaxis: SCDs This document was dictated utilizing Exabre. Please excuse any grammatical errors that may be secondary to use of this software. Admission and Anticipated Discharge Date Admission Date: 09/15/2025 History of Present Illness Chief Complaint: SOB Primary Care Provider: Chris Sweet MD 79-year-old female PMHx ADD, HLD, OP, esophageal stricture, gastroparesis, glaucoma, and arthritis presenting for shortness of breath and coughing over the past 7 days, worsening the day of arrival. 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 The SOB is mostly all the time, and she just feels as though she has a difficult time taking full breaths instead of being winded. Reports that she has had a nonproductive cough as well, ongoing. She had a fever "sometime last week" with Tmax 104 degrees Fahrenheit, then some low grade readings throughout the week, 99-100 degrees Fahrenheit. She denies additional URI symptoms. No known sick contacts. Denies chest pain, palpations, abdominal pain, N/V/D/C, LUTS, chills, numbness/tingling, dizziness, syncope or falls. She states that she is normally in good health, not requiring many medications at her baseline. She does not wear O2 at baseline. She does show me pictures of her horse, Pearcy, who has since passed but she shares joyful memories of her time with her. ED evaluation reveals CBC with no leukocytosis, stable H&H; PT/INR WNL; CMP sodium 134, potassium 3.1, chloride 95, glucose 144, AST 41, alkaline phosphatase 385; lactate 1.9; procalcitonin 0.05; UA negative for infection; BioFire positive mycoplasma pneumonia; CXR RLL PNA; EKG sinus tachycardia, possible LAE, LAFB at 110 bpm.; Provided with 2L NSS, azithromycin 500 mg p.o., and acetaminophen 1 g IV in ED. Please see Dr. Mondragon's attestation for adjustments/additions to treatment plan. Allergies Allergy/AdvReac Type Severity Reaction Status Date / Time Penicillins Allergy Severe Anaphylaxis Verified 09/15/25 17:48 Cephalosporins Allergy Intermediate Hives Verified 09/15/25 17:48 Sulfa (Sulfonamide Allergy Intermediate ALLERGIC Verified 09/15/25 17:48 Antibiotics) MENINGITIS erythromycin base Allergy Unknown CAN'T Verified 09/15/25 17:48 REMEMBER Home Medications Medication Instructions Recorded Confirmed Type cholecalciferol (vitamin D3) 50 100 mcg PO DAILY 05/11/21 09/15/25 History mcg (2,000 unit) capsule (Vitamin D3) multivitamin 1 tab PO DAILY 05/11/21 09/15/25 History vit C 250 mg-vit E 90 mg-zinc 40 1 tab PO BID 05/11/21 09/15/25 History mg-copper 1 [id number] capsule (PreserVision AREDS-2) alendronate 70 mg tablet 70 mg PO WK 05/11/25 09/15/25 History dorzolamide 22.3 mg-timolol 6.8 1 drp OPB QAM 05/11/25 09/15/25 History mg/mL eye drops tafluprost (PF) 0.0015 % eye drops 1 drp OPB HS 05/11/25 09/15/25 History in a dropperette (Zioptan (PF)) Past Med/Surg History Problem List (Updated 09/15/25 @ 21:17 by Bebeto Pearl PA-C) Transaminitis Hypokalemia Hyponatremia Hypoxia (Acute) Acute hypokalemia (Acute) Pneumonia (Acute) Mycoplasmal pneumonia (Acute) Acute dyspnea (Acute) Tinnitus, bilateral Sensorineural hearing loss, bilateral Encounter for pre-operative examination Medical History (Updated 09/15/25 @ 21:17 by Bebeto Pearl PA-C) Nausea Dehydration Gastroparesis Pneumonia Surgical History Hx of tonsillectomy History of appendectomy Family History Other Cancer Heart disease Hypertension Kidney disease Social History Smoking Status: Never smoker Tobacco Type: Cigarettes Second Hand Exposure: No; Do You Dip or Chew Tobacco: No; Hx Alcohol Use: Yes Alcohol type: wine Hx Substance Use: No Preferred Language: Nepali 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 Beliefs That Will Affect Care: None Current Living Situation: Alone Other Information That Helps Us Care for You: No Feels Safe at Home: Yes Safety Concerns: Feels Safe At This Time Assistive Devices: Glasses and Oxygen - Continuous Review of Systems Review of Systems: All systems reviewed & are unremarkable except as noted in Subjective Physical Exam Physical Exam: General: No acute distress Skin: Warm and dry Head: Normocephalic, atraumatic Eyes: PERRL, conjunctivae clear, sclera non-icteric ENT: External ear and ear canal without swelling; nose atraumatic; good dentition, tongue normal appearance, pharynx normal Neck: Supple, no LAD Cardio: RRR, no M/G/R, S1 and S2 normal Resp: Wearing O2 via NC; No respiratory distress, expiratory wheezing, otherwise Lungs CTA Abdomen: Soft, symmetric, nontender; No masses or hepatosplenomegaly; Bowel sounds normoactive MSK: No deformities; pulses palpable and equal; no edema. Neuro: Awake, alert; Sensation intact bilaterally; CN grossly intact Psych: Appropriate mood and affect; good judgement and insight. Results & Data Results & Data Vital Signs (Past 12 Hours) Vital Signs Temp Pulse Pulse Resp BP BP Pulse Ox 09/15/25 20:24 83 24 97 09/15/25 20:15 87 L 09/15/25 20:00 87 20 90 09/15/25 20:00 121/71 09/15/25 20:00 121/71 09/15/25 20:00 121/71 09/15/25 20:00 121/71 09/15/25 20:00 121/09/15/25 19:51 88 35 H 93 09/15/25 19:36 91 H 30 H 94 09/15/25 19:30 125/76 09/15/25 19:30 125/76 09/15/25 19:24 91 H 16 95 09/15/25 19:18 92 H 24 93 09/15/25 19:03 99 H 19 92 09/15/25 19:00 147/72 H 09/15/25 19:00 147/72 H 09/15/25 19:00 147/72 H 09/15/25 19:00 147/72 H 09/15/25 18:42 94 H 16 09/15/25 18:31 139/75 09/15/25 18:24 100 H 15 94 09/15/25 18:19 122/82 09/15/25 18:19 122/82 09/15/25 18:19 122/82 09/15/25 18:19 122/82 09/15/25 18:19 37.2 C 102 H 20 122/82 95 09/15/25 18:15 100 H 21 09/15/25 18:00 102 H 24 09/15/25 17:57 105 H 23 09/15/25 17:30 108 H 26 H 09/15/25 17:15 111 H 09/15/25 17:12 104 H 25 H 95 09/15/25 17:01 107 H 21 129/82 92 09/15/25 17:00 129/82 09/15/25 16:53 92 09/15/25 16:53 37.9 C H 116 H 16 134/93 92 09/15/25 16:53 09/15/25 16:53 09/15/25 16:33 37.1 C 126 H 20 128/84 92 O2 Del Method O2 Flow Rate 09/15/25 20:24 Nasal Cannula 2 09/15/25 20:15 Room Air 09/15/25 20:00 09/15/25 20:00 09/15/25 20:00 09/15/25 20:00 09/15/25 20:00 09/15/25 20:00 09/15/25 19:51 09/15/25 19:36 09/15/25 19:30 09/15/25 19:30 09/15/25 19:24 09/15/25 19:18 09/15/25 19:03 09/15/25 19:00 09/15/25 19:00 09/15/25 19:00 09/15/25 19:00 09/15/25 18:42 09/15/25 18:31 09/15/25 18:24 09/15/25 18:19 09/15/25 18:19 09/15/25 18:19 09/15/25 18:19 09/15/25 18:19 Room Air 09/15/25 18:15 09/15/25 18:00 09/15/25 17:57 09/15/25 17:30 09/15/25 17:15 09/15/25 17:12 Room Air 09/15/25 17:01 Room Air 09/15/25 17:00 09/15/25 16:53 Room Air 09/15/25 16:53 Room Air 09/15/25 16:53 Room Air 09/15/25 16:53 Room Air 09/15/25 16:33 Nasal Cannula Laboratory Results 09/15/25 17:35 Aerobic Blood Culture - Pending Blood Anaerobic Blood Culture - Pending 09/15/25 16:54 Aerobic Blood Culture - Pending Blood Anaerobic Blood Culture - Pending 09/15/25 09/15/25 18:54 16:54 WBC 8.75 RBC 4.46 Hgb 12.3 Hct 37.0 MCV 83.0 MCH 27.6 MCHC 33.2 RDW Std Deviation 52.4 H RDW Coeff of Francine 17.2 H Plt Count 248 MPV 9.2 L Immature Gran % (Auto) 0.7 Neut % (Auto) 81.9 Lymph % (Auto) 9.4 Mason % (Auto) 6.7 Eos % (Auto) 1.0 Baso % (Auto) 0.3 Neut # (Auto) 7.16 H Lymph # (Auto) 0.82 L Mason # (Auto) 0.59 Eos # (Auto) 0.09 Baso # (Auto) 0.03 Immature Gran # (Auto) 0.06 PT 11.4 INR 1.1 APTT 29 PTT Ratio 1.1 Sodium 134 L Potassium 3.1 L Chloride 95 L Carbon Dioxide 29 Anion Gap 10 BUN 12 Creatinine 0.67 Est Cr Clr Drug Dosing 54.1 eGFR 89.96 BUN/Creatinine Ratio 17.9 Glucose 144 H Lactate 1.9 Calcium 9.3 Magnesium 1.9 Total Bilirubin 0.5 AST 41 H ALT 46 Alkaline Phosphatase 385 H Troponin I High Sens 9.4 Total Protein 7.7 Albumin 3.9 Globulin 3.8 Albumin/Globulin Ratio 1.0 Procalcitonin 0.05 Urine Color Yellow Urine Appearance Clear Urine pH 7.0 Ur Specific [place] 1.015 Urine Protein 1+ H Urine Glucose (UA) Negative Urine Ketones 1+ H Urine Blood Trace-intact H Urine Nitrite Negative Urine Bilirubin Negative Urine Urobilinogen Negative Ur Leukocyte Esterase Negative Urine WBC (Auto) 0-5 Urine RBC (Auto) 0-2 U Hyaline Cast (Auto) 3-5 H U Epithel Cells (Auto) 0-2 Urine Bacteria (Auto) None Seen Urine Comment Adenovirus (PCR) Not Detected B. pertussis DNA (PCR) Not Detected B.parapertussis DNA PCR Not Detected C. pneumoniae DNA (PCR) Not Detected Coronavirus OC43 (PCR) Not Detected Coronavirus HKU1 (PCR) Not Detected Coronavirus 229E (PCR) Not Detected SARS-CoV-2 (PCR) Not Detected Coronavirus NL63 (PCR) Not Detected Human Metapneumovir PCR Not Detected Influenza Type A (PCR) Not Detected Influenza Type B (PCR) Not Detected M. pneumoniae (PCR) DETECTED A Parainfluenza 1 (PCR) Not Detected Parainfluenza 2 (PCR) Not Detected Parainfluenza 3 (PCR) Not Detected Parainfluenza 4 (PCR) Not Detected RSV (PCR) Not Detected Entero/Rhino (PCR) Not Detected Diagnostic Findings Chest X-Ray 09/15/25 16:39 Single frontal view of the chest Comparison is made to prior exam dated 12/11/2024 Impression: Right lower lobe pneumonia. Electronically signed by Dewayne Guadalupe 09-15-2025 8:24 PM Medications Administered 2L NSS Azithromycin 500 mg p.o. Acetaminophen 1 IV ECG Additional Comments: Tachycardia, possible LAE, LAFB 110 bpm, MN 150, QRS 82, QT/QTc 372/462, PRT /70 Code Status & VTE Plan Code Status Full Supervising Physician Co-Signing Physician Notes Patient seen and examined, chart reviewed, case discussed with STU Pearl and I agree with the assessment and plan as above. Patient with ongoing pulmonary symptoms, cough and SOB. Found to have Mycoplasma pneumoniae, RLL infiltrate on CXR. Diffuse wheezing on exam otherwise unremarkable Labs and images reviewed Assessment/Plan - 79yo female with mycoplasma pneumoniae, RLL pneumonia -Admit to medical with telemetry -Gentle IVF -Azithromycin -Levaquin for now -supplemental O2 as needed -Remainder as above PG Care Time/CCT Total # of Minutes Spent Total Time Spent with Patient: Total time spent is greater than 50% in coordination of care (as documented) at patient's floor/unit and/or counseling patient: Coding Level of Care Code 75601 INT INP/OBS CARE 3/75MIN Diagnoses Mycoplasmal pneumonia J15.7 Hypoxia R09.02 Hyponatremia E87.1 Hypokalemia E87.6 Transaminitis R74.01
[2025-09-15] MEDS: POTASSIUM CHLORIDE CRTAB 20 MEQ TABCR PO STA (22:01)
[2025-09-15] MEDS: LEVALBUTEROL 1.25 MG/3 ML NEB NEB SCH (22:01)
[2025-09-15] MEDS: COUGH DROP (SUGAR FREE) LOZ 24 LOZ/1 BOX BUCCAL PRN (22:02)
[2025-09-15] MEDS ORDERED: ONDANSETRON INJ 2 MG/ML 2 ML VIAL IV PRN (22:39)
[2025-09-15] MEDS: LACTATED RINGER'S 1,000 ML IV SCH (23:07)
[2025-09-16] MEDS: MELATONIN 3 MG TAB PO PRN (01:34)
[2025-09-16 06:02] LABS: Hematocrit (blood only) 32.2 % (37.0-47.0); Hemoglobin 10.6 g/dl (12.0-16.0); Mean Corpuscular Hemoglobin 27.5 pg (25.0-34.0); Mean Corpuscular Volume 83.4 fL (80.0-100.0); Platelet Count 228 K/uL (130-400); RDW Standard Deviation 52.7 fL (36.4-46.3); Red Blood Count 3.86 M/uL (4.20-5.40); White Blood Count 8.00 K/ul (4.8-10.8)
[2025-09-16 06:18] LABS: Alanine Aminotransferase 35.0 U/L (7-52); Albumin Level 3.1 gm/dl (3.4-5.0); Alkaline Phosphatase 293.0 U/L (34-104); Anion Gap 7.0 (3-11); Bilirubin,Total 0.4 mg/dl (0.2-1.0); Blood Urea Nitrogen 8.0 mg/dl (6-23); Calcium 8.5 mg/dl (8.6-10.3); Carbon Dioxide 27.0 mmol/L (21-32); Chloride 105.0 mmol/L (98-107); Creatinine Clr Calc Pharmacy 105.0 ml/min; Glucose 106.0 mg/dl (70-99(Fasting)); Potassium 3.7 mmol/L (3.5-5.1); Sodium 139.0 mmol/L (136-145); Total Protein 6.1 gm/dl (6.0-8.3)
[2025-09-16] MEDS ORDERED: CHOLECALCIFEROL 25 MCG (1000 UNITS) TAB PO SCH (09:00)
[2025-09-16] MEDS: AZITHROMYCIN 250 MG TAB PO SCH (09:57)
[2025-09-16] MEDS: DORZOLAMIDE/TIMOLOL 22.3/6.8MG/ML 10 ML BTL OPB SCH (09:58)
--- NOTE | 2025-09-16 20:39 | Hospitalist Progress Note ---
Date of Service September 16, 2025 Assessment & Plan (1) Mycoplasmal pneumonia: Plan: Patient remains afebrile and reports feeling better with reduced cough, and improved SOB on 09/16/2025, after having received azithromycin 500mg PO x 1 dose (09/15/2025, 6:26pm) and levofloxacin 750mg IV x 1 dose (09/15/2025, 10:02pm). Patient continues with monotherapy utilizing azithromycin 250mg PO daily (day #1/3 on 09/16/2025, 9:57am) as dual therapy utilizing azithromycin and levofloxacin is pharmacologically redundant and a waste of money. In addition, the side effect profile (e.g., Achilles tendinopathy, aneurysm formation/dissection/, encephalopathy, seizure, subconjunctival hemorrhage, pancytopenia, etc.) outweighs any benefits conferred on patient should patient continue to receive levofloxacin while in [facility]. (2) Hypoxia: Plan: cf., admission O2 saturation 87% on room air (09/15/2025, 8:15pm). cf., repeat O2 saturation 97% on 2 liters/minute O2 via nasal cannula (09/15/2025, 8:24pm). Acute hypoxic respiratory failure was due to acute mycoplasma pneumonia of RLL. Acute hypoxic respiratory failure has RESOLVED with empiric antibiotic therapy as noted in bullet #1 above. cf., repeat O2 saturation 97% on room air (09/16/2025, 11:35am). cf., repeat O2 saturation 94% on room air (09/16/2025, 7:29pm). (3) Hyponatremia: Plan: cf., Na 134 mmol/L (09/15/2025, 4:54pm). cf., Na 139 mmol/L (09/16/2025, 5:30am). Acute hypovolemic hyponatremia was due to decreased oral intake of water, due to acute mycoplasma pneumonia of RLL. Acute hypovolemic hyponatremia RESOLVED s/p rehydration therapy utilizing 2 liters of 0.9% NS @ 999 mL/hr (09/15/2025, 5:02pm) and 1 liter of lactated Ringers @ 80 mL/hr (09/15/2025, 11:07pm). Subsequently, patient has been advised to drink at least 8 ounces of water for each hour while awake, in order to stay hydrated and in order to avoid de veloping acute hypovolemic hyponatremia again. (4) Hypokalemia: Plan: cf., K 3.1 mmol/L (09/15/2025, 4:54pm). cf., K 3.7 mmol/L (09/16/2025, 5:30am). Acute hypokalemia was due to decreased oral intake of potassium-containing foods, due to acute mycoplasma pneumonia of RLL. Acute hypokalemia RESOLVED s/p supplementation with KCl 40meq PO x 1 dose (09/15/2025, 10:01pm). Subsequently, patient has been advised to eat potassium-rich vegetables on a daily basis, in order to avoid developing acute hypokalemia again. (5) Transaminitis: Plan: cf., AST 41 U/L, ALK PHOS 385 U/L (09/15/2025, 4:54pm). cf., AST 32 U/L, ALK PHOS 293 U/L (09/16/2025, 5:30am). Acute transaminitis is probably due to acute mycoplasma pneumonia of RLL- mediated hepatopathy. Subsequently, patient has been advised to undergo repeat LFT in 30 days after hospital discharge, as patient will presumably have recovered from acute mycoplasma pneumonia of RLL within/by 30 days after hospital discharge. Plan 79-year-old female PMHx ADD, HLD, OP, esophageal stricture, gastroparesis, glaucoma, and arthritis presenting for shortness of breath and coughing over the past 7 days, worsening the day of arrival. Her evaluation significant for slightly decreased sodium, potassium, and chloride. Her LFTs are elevated with AST 41 and alkaline phosphatase 385 which is up from her baseline. Procalcitonin and lactate are normal. Urine is negative for infection. Her BioFire does reveal positive results for mycoplasma pneumonia, chest x-ray RLL PNA. Admission for pneumonia management in setting of recurrent hypoxia. #Mycoplasma pneumonia/Acute hypoxia Sx of cough, SOB, decreased appetite, and hypoxia with exertion. CURB 65- 1 (age), but in setting of hypoxia. No known sick contacts, no symptoms concerning for DVT/PE. Suspect that hypoxia in setting of PNA, will admit for management of such. Anaphylaxis to penicillins, hives to cephalosporins. - CBC without leukocytosis/leukopenia; BMP sodium 134, potassium 3.1; lactate 1.9; procalcitonin 0.05 - CBC am - CXR RRL PNA - EKG sinus tachycardia - IS - Xopenex nebs naman - O2 via NC; No O2 at home - Acetaminophen prn fever/pain - Azithro + Levaquin IV #Hyponatremia In setting of hyperglycemia, likely 2/2 poor intake past 7 days [employer] RO[employer]. Received 2L NSS in ED. - Na 134, glucose 144; corrected Na 135 - BMP am - Gentle IVF LR @ 80 mL/hr x 500 mL #Hypokalemia Asymptomatic currently. - K 3.1, Mg 1.9 - BMP am - EKG sinus tachycardia, no acute changes otherwise - KCl 40 mEq po now #Transaminitis No prior history of such; h/o OP, alendronate; in setting of present infection. No abdominal pain or GI symptoms otherwise. - AST 41, ALT 46, alk phos 385, total bili 0.5 - LFTs am #Glaucoma- Continue eyedrops Dispo: Admit, med/tele VTE Prophylaxis: SCDs This document was dictated utilizing LanternCR[employer]. Please excuse any grammatical errors that may be secondary to use of this software. Admission and Anticipated Discharge Date Admission Date: September 15, 2025 Subjective "I feel better today (09/16/2025) than yesterday (09/15/2025); I am breathing better and I don't feel as short of breath and coughing a lot less, too, today (09/16/2025) after starting the azithromycin yesterday (09/15/2025). Review of Systems Constitutional: Positive for improved SOB and less coughing on 09/16/2025, compared to admission date 09/15/2025. Negative for antecedent/coincident fevers, chills, diaphoresis, wheeze, sore throat, hemoptysis, chest pains, palpitations, pleurisy, nausea, vomiting, diarrhea, abdominal pain, pelvic pain, hematemesis, hematochezia, melena, hematuria, dysuria, frequency, urgency, headaches, dizziness, lightheadedness, visual changes, hearing changes, weakness, falls, syncope, trauma, travel history, sick contacts, or food/drug ingestions novel or new. All other review of systems are reported as negative by the patient on 09/16/2025. Physical Exam Constitutional: General: Comfortable, cooperative, coherent. Wide awake and alert. Not confused, lethargic, or obtunded. Patient speaks in complete, fluent, and articulate sentences without pause, interruption, cough, or wheeze. HEENT: NC/AT. EOMI. PERRL. No nystagmus, gaze paresis, anisocoria, miosis, m ydriasis, chemosis, hyphema, scleral injection, conjunctivitis, or pterygium. No otorrhea. No rhinorrhea. Neck: Supple, no stridor, bruit, or goiter. Jugular venous pressure 5cm above the sternal angle of Riky, which is typically 5 cm above the right atrium. Lymph: No anterior/posterior cervical lymphadenopathy, supraclavicular/infraclavicular lymphadenopathy, axilla/epitrochlear/inguinal ly mphadenopathy. Chest: Symmetric rise and fall with respirations. Non-tender to palpation. Heart: RRR, S1 and S2. No S3 or S4 summation gallop. No tripartite friction rub. No murmur. Lungs: Clear to auscultation and percussion. No audible expiratory wheeze, egophony, pectoriloquy, increase in tactile fremitus, or flatness/dullness to percussion at the bases. Abd: Soft, non-tender, non-distended. Bowel sounds auscultated in all 4 quadrants. No rebound, guarding, Taylor's sign, or organomegaly. Ext: No clubbing, cyanosis, or edema. 2+ pedal pulses bilaterally. Skin: No decubitus ulcer or enanthem or exanthem. Neuro: No tremors, tics, or myoclonus. DTR+. Urology: No rasmussen catheter. No purewick. No urethral discharge. Results & Data Results & Data Vital Signs (Past 12 Hours) Vital Signs Temp Pulse Pulse Resp BP Pulse Ox O2 Del Method 09/16/25 19:29 Nasal Cannula 09/16/25 19:29 36.9 C 108 H 18 124/78 94 Room Air 09/16/25 15:35 37.2 C 90 18 124/77 96 Room Air 09/16/25 15:26 96 H 20 96 Nasal Cannula 09/16/25 15:05 97 H 09/16/25 11:35 37.0 C 81 18 96/56 L 97 Room Air 09/16/25 10:18 Nasal Cannula O2 Flow Rate 09/16/25 19:29 1 09/16/25 19:29 09/16/25 15:35 09/16/25 15:26 2 09/16/25 15:05 09/16/25 11:35 09/16/25 10:18 2 Laboratory Results Mycoplasma pneumoniae+ (09/15/2025, 4:54pm [facility] respiratory pathogen PCR panel testing). Diagnostic Findings Portable CXR (09/15/2025, 4:39pm): 1. RLL infiltrate. 2. No effusion, cardiomegaly, pulmonary vascular congestion, or pneumothorax (by my review). PG Care Time/CCT Total # of Minutes Spent Total Time Spent with Patient: Total time spent is greater than 50% in coordination of care (as documented) at patient's floor/unit and/or counseling patient: Coding Level of Care Code 62640 SUB INP/OBS CARE MIN Diagnoses Pneumonia of right lower lobe due to Mycoplasma pneumoniae J15.7 Laterality: right Lung location: lower lobe of lung Hypoxia R09.02 Hyponatremia E87.1 Hypokalemia E87.6 Transaminitis R74.01 (1) Mycoplasmal pneumonia Laterality: right Lung location: lower lobe of lung Qualified Code(s): J15.7 - Pneumonia due to Mycoplasma pneumoniae
[2025-09-16] MEDS: ACETAMINOPHEN 325 MG TAB PO PRN (20:45)
[2025-09-16] MEDS: TAFLUPROST/PF 1 EA DROPS OP SCH (20:46)
[2025-09-16] MEDS ORDERED: AZITHROMYCIN 500 MG/255 ML BAG IV SCH (22:00)
--- NOTE | 2025-09-16 22:12 | Electrocardiogram Report ---
Test Reason : Blood Pressure : */* mmHG Vent. Rate : 110 BPM Atrial Rate : 110 BPM P-R Int : 150 ms QRS Dur : 82 ms QT Int : 342 ms P-R-T Axes : 77 -69 70 degrees QTcB Int : 462 ms Sinus tachycardia Possible Left atrial enlargement Left anterior fascicular block Septal infarct , age undetermined Abnormal ECG When compared with ECG of 11-May-2025 16:09, Vent. rate has increased by 36 bpm Septal infarct is now Present Confirmed by Rigoberto Ferrell ([id number]) on 09/16/2025 10:11:38 PM Referred By: REFERRED SELF Confirmed By: Rigoberto Ferrell
[2025-09-17 06:23] LABS: Hematocrit (blood only) 31.6 % (37.0-47.0); Hemoglobin 10.5 g/dl (12.0-16.0); Immature Granulocytes # (auto) 0.04 K/uL (0.01-0.20); Immature Granulocytes % (auto) 0.5 %; Mean Corpuscular Hemoglobin 28.5 pg (25.0-34.0); Mean Corpuscular Volume 85.6 fL (80.0-100.0); Platelet Count 252 K/uL (130-400); RDW Standard Deviation 55.8 fL (36.4-46.3); Red Blood Count 3.69 M/uL (4.20-5.40); White Blood Count 7.84 K/ul (4.8-10.8)
[2025-09-17 06:35] LABS: Alanine Aminotransferase 33.0 U/L (7-52); Albumin Globulin Ratio 0.9 (0.9-2); Albumin Level 3.1 gm/dl (3.4-5.0); Alkaline Phosphatase 299.0 U/L (34-104); Anion Gap 6.0 (3-11); Bilirubin,Total 0.3 mg/dl (0.2-1.0); Blood Urea Nitrogen 6.0 mg/dl (6-23); Calcium 8.9 mg/dl (8.6-10.3); Carbon Dioxide 31.0 mmol/L (21-32); Chloride 103.0 mmol/L (98-107); Creatinine Clr Calc Pharmacy 89.1 ml/min; Globulin 3.3 gm/dl (2.5-4.0); Glucose 106.0 mg/dl (70-99(Fasting)); Potassium 3.4 mmol/L (3.5-5.1); Sodium 140.0 mmol/L (136-145); Total Protein 6.4 gm/dl (6.0-8.3)
[2025-09-17] MEDS: POTASSIUM CHLORIDE CRTAB 20 MEQ TABCR PO STA (09:23)
[2025-09-17] MEDS: INFLUENZA VACC TS2025-26(65y+)/PF (IIV3) 0.5mL Syr IM ONE (09:27)
[2025-09-17 11:15] VITALS: BP 117/72; TEMP 98.4
--- NOTE | 2025-09-17 12:43 | Discharge Summary ---
Discharge Summary Date of Service September 17, 2025 Principal Dx & Hospital Course #1 = Principal Diagnosis (1) Mycoplasmal pneumonia: Patient remained afebrile and reported feeling better with reduced cough, and improved SOB on 09/16/2025, after having received azithromycin 500mg PO x 1 dose (09/15/2025, 6:26pm) and levofloxacin 750mg IV x 1 dose (09/15/2025, 10:02pm). Patient continued with monotherapy utilizing azithromycin 250mg PO daily (day #1 on 09/16/2025, 9:57am)(day #2 on 09/17/2025, 9:24am) as dual therapy utilizing azithromycin and levofloxacin is pharmacologically redundant and a waste of money. In addition, the side effect profile (e.g., Achilles tendinopathy, aneurysm formation/dissection/, encephalopathy, seizure, subconjunctival hemorrhage, pancytopenia, etc.) outweighs any benefits conferred on patient should patient continue to receive levofloxacin while in [facility]. Patient remains afebrile and reports feeling better with reduced cough, and improved SOB on 08/2025. Patient was subsequently discharged back to her home on 09/17/2025, 12:39pm. Patient's [id number], [address], [place] [address], received an electronic prescription for azithromycin 250mg PO daily, #6 tablets, no refills, on 09/17/2025, prior to hospital discharge back to her home on 09/17/2025, 12:39pm. (2) Hypoxia: cf., admission O2 saturation 87% on room air (09/15/2025, 8:15pm). cf., repeat O2 saturation 97% on 2 liters/minute O2 via nasal cannula (09/15/2025, 8:24pm). Acute hypoxic respiratory failure was due to acute mycoplasma pneumonia of RLL. Acute hypoxic respiratory failure has RESOLVED with empiric antibiotic therapy as noted in bullet #1 above. cf., repeat O2 saturation 97% on room air (09/16/2025, 11:35am). cf., repeat O2 saturation 94% on room air (09/16/2025, 7:29pm). cf., discharge O2 saturation 94% on room air (09/17/2025, 11:13am). (3) Hyponatremia: cf., Na 134 mmol/L (09/15/2025, 4:54pm). cf., Na 139 mmol/L (09/16/2025, 5:30am). Acute hypovolemic hyponatremia was due to decreased oral intake of water, due to acute mycoplasma pneumonia of RLL. Acute hypovolemic hyponatremia RESOLVED s/p rehydration therapy utilizing 2 liters of 0.9% NS @ 999 mL/hr (09/15/2025, 5:02pm) and 1 liter of lactated Ringers @ 80 mL/hr (09/15/2025, 11:07pm). Subsequently, patient was advised to drink at least 8 ounces of water for each hour while awake, in order to stay hydrated and in order to avoid developing acute hypovolemic hyponatremia again. (4) Hypokalemia: cf., K 3.1 mmol/L (09/15/2025, 4:54pm). cf., K 3.7 mmol/L (09/16/2025, 5:30am). Acute hypokalemia was due to decreased oral intake of potassium-containing foods, due to acute mycoplasma pneumonia of RLL. Acute hypokalemia RESOLVED s/p supplementation with KCl 40meq PO x 1 dose (09/15/2025, 10:01pm). Subsequently, patient was advised to eat potassium-rich vegetables on a daily basis, in order to avoid developing acute hypokalemia again. (5) Transaminitis: cf., AST 41 U/L, ALK PHOS 385 U/L (09/15/2025, 4:54pm). cf., AST 32 U/L, ALK PHOS 293 U/L (09/16/2025, 5:30am). Acute transaminitis is probably due to acute mycoplasma pneumonia of RLL- mediated hepatopathy. Subsequently, patient was advised to undergo repeat LFT in 30 days after hospital discharge, as patient will presumably have recovered from acute my coplasma pneumonia of RLL within/by 30 days after hospital discharge. Plan 79 years old female with PMH of FULL CODE @ home, hyperlipidemia, esophageal stricture, gastroparesis, chronic open angle glaucoma, osteoarthritis/osteoporosis, who presented to [facility] ER on 09/15/2025 with complaints of shortness of breath and coughing over the past 7 days, worsening the day of arrival. Her evaluation significant for slightly decreased sodium, potassium, and chloride. Her LFTs are elevated with AST 41 and alkaline phosphatase 385 which is up from her baseline. Procalcitonin and lactate are normal. Urine is negative for infection. Her BioFire does reveal positive results for mycoplasma pneumonia, chest x-ray RLL PNA. Admission for pneumonia management in setting of recurrent hypoxia. Patient was subsequently admitted to the inpatient hospitalist service @ [facility] on 09/15/2025 with the following diagnoses: 1. Acute hypoxic respiratory failure was due to acute mycoplasma pneumonia of RLL. 2. Acute hypovolemic hyponatremia with admission Na 134 mmol/L (09/15/2025, 4:54pm). 3. Acute hypokalemia with admission K 3.1 mmol/L (09/15/2025, 4:54pm). 4. Acute transaminitis with admission AST 41 U/L, ALK PHOS 385 U/L (09/15/2025, 4:54pm). - #Mycoplasma pneumonia/Acute hypoxia Sx of cough, SOB, decreased appetite, and hypoxia with exertion. CURB 65- 1 (age), but in setting of hypoxia. No known sick contacts, no symptoms concerning for DVT/PE. Suspect that hypoxia in setting of PNA, will admit for management of such. Anaphylaxis to penicillins, hives to cephalosporins. - CBC without leukocytosis/leukopenia; BMP sodium 134, potassium 3.1; lactate 1.9; procalcitonin 0.05 - CBC am - CXR RRL PNA - EKG sinus tachycardia - IS - Xopenex nebs naman - O2 via NC; No O2 at home - Acetaminophen prn fever/pain - Azithro + Levaquin IV #Hyponatremia In setting of hyperglycemia, likely 2/2 poor intake past 7 days [employer]. Received 2L NSS in ED. - Na 134, glucose 144; corrected Na 135 - BMP am - Gentle IVF LR @ 80 mL/hr x 500 mL #Hypokalemia Asymptomatic currently. - K 3.1, Mg 1.9 - BMP am - EKG sinus tachycardia, no acute changes otherwise - KCl 40 mEq po now #Transaminitis No prior history of such; h/o OP, alendronate; in setting of present infection. No abdominal pain or GI symptoms otherwise. - AST 41, ALT 46, alk phos 385, total bili 0.5 - LFTs am #Glaucoma- Continue eyedrops Dispo: Admit, med/tele VTE Prophylaxis: SCDs This document was dictated utilizing Livemap. Please excuse any grammatical errors that may be secondary to use of this software. Admission HPI Per Admitting Provider 79 years old female with PMH of FULL CODE @ home, hyperlipidemia, esophageal stricture, gastroparesis, chronic open angle glaucoma, osteoarthritis/osteoporosis, who presented to [facility] ER on 09/15/2025 with complaints of shortness of breath and coughing over the past 7 days, worsening the day of arrival. Pt reports that for the past 7 days [employer], she had had extreme fatigue in the setting of a cough and SOB. The SOB is mostly all the time, and she just feels as though she has a difficult time taking full breaths instead of being winded. Reports that she has had a nonproductive cough as well, ongoing. She had a fever "sometime last week" with Tmax 104 degrees Fahrenheit, then some low grade readings throughout the week, 99-100 degrees Fahrenheit. She denies additional URI symptoms. No known sick contacts. Denies chest pain, palpations, abdominal pain, N/V/D/C, LUTS, chills, numbness/tingling, dizziness, syncope or falls. She states that she is normally in good health, not requiring many medications at her baseline. She does not wear O2 at baseline. She does show me pictures of her horse, [place], who has since passed but she shares joyful memories of her time with her. ED evaluation reveals CBC with no leukocytosis, stable H&H; PT/INR WNL; CMP sodium 134, po tassium 3.1, chloride 95, glucose 144, AST 41, alkaline phosphatase 385; lactate 1.9; procalcitonin 0.05; UA negative for infection; BioFire positive mycoplasma pneumonia; CXR RLL PNA; EKG sinus tachycardia, possible LAE, LAFB at 110 bpm.; Provided with 2L NSS, azithromycin 500 mg p.o., and acetaminophen 1 g IV in ED. Discharge Exam Constitutional General: Comfortable, cooperative, coherent. Wide awake and alert. Not confused, lethargic, or obtunded. Patient speaks in complete, fluent, and articulate sentences without pause, interruption, cough, or wheeze. HEENT: NC/AT. EOMI. PERRL. No nystagmus, gaze paresis, anisocoria, miosis, mydriasis, chemosis, hyphema, scleral injection, conjunctivitis, or pterygium. No otorrhea. No rhinorrhea. Neck: Supple, no stridor, bruit, or goiter. Jugular venous pressure 5cm above the sternal angle of Riky, which is typically 5 cm above the right atrium. Lymph: No anterior/posterior cervical lymphadenopathy, supraclavicular/infraclavicular lymphadenopathy, axilla/epitrochlear/inguinal lymphadenopathy. Chest: Symmetric rise and fall with respirations. Non-tender to palpation. Heart: RRR, S1 and S2. No S3 or S4 summation gallop. No tripartite friction rub. No murmur. Lungs: Clear to auscultation and percussion. No audible expiratory wheeze, ego phony, pectoriloquy, increase in tactile fremitus, or flatness/dullness to percussion at the bases. Abd: Soft, non-tender, non-distended. Bowel sounds auscultated in all 4 quadrants. No rebound, guarding, Taylor's sign, or organomegaly. Ext: No clubbing, cyanosis, or edema. 2+ pedal pulses bilaterally. Skin: No decubitus ulcer or enanthem or exanthem. Neuro: No tremors, tics, or myoclonus. DTR+. Urology: No rasmussen catheter. No purewick. No urethral discharge. Discharge Plan Discharge Items Patient Disposition: Home - Self-Care Reason For Visit: PNA, HYPOXIA Discharge Diagnosis: 1. Acute hypoxic respiratory failure was due to acute mycoplasma pneumonia of RLL. Condition on Discharge: Fair Activity: Resume your previous activity Lifting: Gradually increase as tolerated Bathing: No limitations Exercise/Sports: Gradually increase as tolerated Driving/Machine Use: No limitations Weightbearing: Full weightbearing Non-emergency contact: Primary Care Provider Call non-emergency contact if: you have any medication questions Follow-up/Referrals: Chris Sweet MD [Primary Care Provider] - Diet: Heart Healthy Addtl Attending Provider Instructions: See your PCP Dr. Chris Sweet within 5-7 days of hospital discharge for routine follow up visit. Pending Studies at Discharge: No Stand-Alone Forms: [employer], Smoking Cessation Medications and DC Order Prescriptions: New azithromycin 250 mg tablet 250 mg PO DAILY 6 Days Qty: 6 0RF Rx Instructions: start on day 2 of therapy Continued multivitamin Tablet 1 tab PO DAILY cholecalciferol (vitamin D3) [Vitamin D3] 50 mcg (2,000 unit) Capsule 100 mcg PO DAILY PreserVision AREDS-2 250-90-40-1 mg Capsule 1 tab PO BID alendronate 70 mg tablet 70 mg PO WK Rx Instructions: THURSDAYS dorzolamide-timolol 22.3-6.8 mg/mL drops 1 drp OPB QAM tafluprost (PF) [Zioptan (PF)] 0.0015 % dropperette 1 drp OPB HS Discharge Orders: Discharge Order (Routine); Ordered 09/17/25 Ordered By: Yuniel lAvarez Admission Data Admit Date/Time: 09/15/25 21:06 Attending Provider: Yuniel Alvarez Admit Provider: Soo Mondragon Primary Care Provider: Chris Sweet Other Providers: Soo Mondragon Hospital Stay Data Consultations 09/15/25 19:03 ED Decision to Admit Stat Pending Results Patient Have Any Pending Studies at Discharge: No Discharge Instructions Given to Patient (Per Discharging Provider) See your PCP Dr. Chris Sweet within 5-7 days of hospital discharge for routine follow up visit. Total Time Total Time Spent Total Time Spent (In Minutes): 35 minutes. Of this time period, 19 minutes were spent in coordinating patient's discharge. Coding Level of Care Code 66999 INP/OBS DISCH >30 MIN Diagnoses Pneumonia of right lower lobe due to Mycoplasma pneumoniae J15.7 Laterality: right Lung location: lower lobe of lung Hypoxia R09.02 Hyponatremia E87.1 Hypokalemia E87.6 Transaminitis R74.01
[2025-09-17 14:43] VITALS: PULSE 85; RESP 18; O2SAT 95
== END 2025-09-17 17:12 | disposition home or self-care (01) | DRG 193 ==
LOC: ED 16:25 → 2N 21:06 → SUATTDRO 21:06 → 2N 22:15